=== PATIENT | male | born 1960 | race Caucasian/White ===

== ENCOUNTER 2018-01-05 15:34 | Emergency (ER) | payer OTHER, MEDICAID ==
[~2018-01-05] VITALS: Ht 172.7 cm; Wt 73.9 kg
[~2018-01-05 15:34] MED LIST: ADULT LOW DOSE81 MG PO; AMBIEN 5 MG TABL5 M1 PO; AMITRIPTYLINE H25 M2 PO; ANTIHYPERTENSIVE; ATORVASTATIN CA40 MG PO; CHANTIX1 MG PO; CLONAZEPAM; CLONAZEPAM 0.50.5 M1 PO; COLACE100 MG PO; ELIQUIS5 MG PO; FLEXERIL PO; IBUPROFEN 800800 M1 PO; INDERAL LA60 M1 PO; LEVOTHYROXIN0.025 MG PO; LISINOPRIL5 MG PO; NITROGLYCERIN0.4 MG SUBLING; OXYCODONE HCL15 MG PO; PERCOCET 10-321 EACH PO; PRINIVIL5 MG PO; PROZAC 20 MG20 M1 PO; RANITIDINE HCL75 MG PO; ROBAXIN500 MG PO; TOPROL XL50 MG PO; UNICOMPLEX M TA1 TA1 PO; XANAX 0.5 MG0.5 MG PO; XANAX1 MG
[2018-01-05 16:06] LABS: ABSOLUTE BASOPHILS 0.1 thou/uL (0.0-0.2); ABSOLUTE EOSINOPHILS 0.5 thou/uL (0.0-0.7); ABSOLUTE LYMPHOCYTES 2.8 thou/uL (0.8-5.3); ABSOLUTE MONOCYTES 1.1 thou/uL (0.0-1.2); ABSOLUTE NEUTROPHILS 5.9 thou/uL (1.6-8.1); BASOPHILS 1.3 %; EOSINOPHILS 4.4 %; HEMATOCRIT 39.8 % (42.0-52.0); HEMOGLOBIN 13.6 gm/dL (14.0-18.0); LYMPHOCYTES 27.4 %; MCH 31.9 pg (26.0-34.0); MCHC 34.2 g/dL (28.0-37.0); MCV 93.4 fL (80.0-100.0); MONOCYTES 10.4 %; MPV 7.9 fl. (7.2-11.1); NUCLEATED RBCS 0 /100WBC; PLATELET COUNT* 275 thou/uL (150-400); POLYS 56.5 %; RBC 4.26 mil/uL (4.50-6.00); RDW-CV 14.3 % (10.5-14.5); WBC 10.4 thou/uL (4.0-11.0)
[2018-01-05 16:15] LABS: CALCIUM 8.5 mg/dL (8.5-10.1); CREATININE 1.1 mg/dL (0.6-1.3); POTASSIUM 4.2 mmol/L (3.5-5.1)
[2018-01-05 17:00] VITALS: BP 112/71
== END 2018-01-05 17:00 | disposition home or self-care (01) ==
LOC: M.ERS 15:34
PROVIDERS: Nurse Practitioner Family
DX: S09.8XXA Other specified injuries of head, initial encounter (principal); E03.9 Hypothyroidism, unspecified; F17.210 Nicotine dependence, cigarettes, uncomplicated; W18.39XA Other fall on same level, initial encounter; Y93.89 Activity, other specified; Y92.89 Other specified places as the place of occurrence of the external cause; Y99.8 Other external cause status

== ENCOUNTER 2018-02-06 19:52 | Emergency (ER) | payer OTHER, MEDICAID ==
[~2018-02-06] VITALS: Ht 172.7 cm; Wt 74.8 kg
[2018-02-06 20:25] LABS: ABSOLUTE BASOPHILS 0.1 thou/uL (0.0-0.2); ABSOLUTE EOSINOPHILS 0.3 thou/uL (0.0-0.7); ABSOLUTE LYMPHOCYTES 2.7 thou/uL (0.8-5.3); ABSOLUTE MONOCYTES 1.4 thou/uL (0.0-1.2); ABSOLUTE NEUTROPHILS 8.2 thou/uL (1.6-8.1); BASOPHILS 0.9 %; EOSINOPHILS 2.2 %; HEMATOCRIT 39.3 % (42.0-52.0); HEMOGLOBIN 13.4 gm/dL (14.0-18.0); LYMPHOCYTES 21.5 %; MCV 94.2 fL (80.0-100.0); MONOCYTES 11.2 %; MPV 8.2 fl. (7.2-11.1); NUCLEATED RBCS 0 /100WBC; PLATELET COUNT* 268 thou/uL (150-400); POLYS 64.2 %; RBC 4.17 mil/uL (4.50-6.00); RDW-CV 14.4 % (10.5-14.5); WBC 12.8 thou/uL (4.0-11.0)
[2018-02-06 20:28] LABS: CALCIUM 8.6 mg/dL (8.5-10.1); POTASSIUM 3.8 mmol/L (3.5-5.1)
[2018-02-06] MEDS ORDERED: GUAIFENESIN200 MG PO (22:24)
[2018-02-06 22:35] VITALS: BP 130/60
== END 2018-02-06 22:48 | disposition home or self-care (01) ==
LOC: M.ERS 19:52
PROVIDERS: Emergency Medicine
DX: R13.10 Dysphagia, unspecified (principal); E03.9 Hypothyroidism, unspecified; F17.210 Nicotine dependence, cigarettes, uncomplicated

== ENCOUNTER → 2018-06-28 | Outpatient (CLI) | payer OTHER, MEDICAID ==
[~2018-06-28] MED LIST changes: +GUAIFENESIN200 MG PO
== END ==
LOC: M.CT 06-14 13:30 → M.ULTRA 06-14 14:00 → M.CT 12:33
DX: I65.22 Occlusion and stenosis of left carotid artery (principal); F17.200 Nicotine dependence, unspecified, uncomplicated; I50.9 Heart failure, unspecified; I42.9 Cardiomyopathy, unspecified; J90 Pleural effusion, not elsewhere classified; J98.4 Other disorders of lung; I25.5 Ischemic cardiomyopathy; I50.21 Acute systolic (congestive) heart failure; I10 Essential (primary) hypertension; I73.9 Peripheral vascular disease, unspecified; Z95.1 Presence of aortocoronary bypass graft; Z95.810 Presence of automatic (implantable) cardiac defibrillator

== ENCOUNTER → 2019-01-29 | Outpatient (CLI) | payer OTHER, MEDICAID | LOC: M.RAD 17:05 | DX: M25.751 Osteophyte, right hip (principal); I70.0 Atherosclerosis of aorta; G89.29 Other chronic pain; M25.561 Pain in right knee; M54.41 Lumbago with sciatica, right side ==

== ENCOUNTER 2019-08-29 02:45 | Emergency (ER) | payer OTHER, MEDICAID ==
[~2019-08-29] VITALS: Ht 177.8 cm; Wt 83.0 kg
[2019-08-29 03:20] LABS: ABSOLUTE BASOPHILS 0.2 thou/uL (0.0-0.2); ABSOLUTE EOSINOPHILS 0.4 thou/uL (0.0-0.7); ABSOLUTE LYMPHOCYTES 5.3 thou/uL (0.8-5.3); ABSOLUTE MONOCYTES 1.3 thou/uL (0.0-1.2); ABSOLUTE NEUTROPHILS 9.2 thou/uL (1.6-8.1); EOSINOPHILS 2.2 %; HEMATOCRIT 41.9 % (42.0-52.0); LYMPHOCYTES 32.3 %; MCH 31.4 pg (26.0-34.0); MCHC 33.4 g/dL (28.0-37.0); MONOCYTES 8.2 %; MPV 8.7 fl. (7.2-11.1); NUCLEATED RBCS 0 /100WBC; PLATELET COUNT* 342 thou/uL (150-400); POLYS 56.3 %; RBC 4.46 mil/uL (4.50-6.00); RDW-CV 14.8 % (10.5-14.5); WBC 16.3 thou/uL (4.0-11.0)
[2019-08-29 03:27] LABS: CALCIUM 9.3 mg/dL (8.5-10.1); CREATININE 1.9 mg/dL (0.6-1.3); POTASSIUM 5.4 mmol/L (3.5-5.1)
[2019-08-29 03:38] LABS: ALBUMIN 3.7 g/dL (3.4-5.0); TOTAL BILIRUBIN 0.4 mg/dL (<0.1-1.0); TOTAL PROTEIN 7.7 g/dL (6.4-8.2)
[2019-08-29 03:40] LABS: INR 1.1; PROTIME 10.9 Seconds (9.20-11.50)
[2019-08-29 03:44] LABS: ALCOHOL < 10 mg/dL (<10); SALICYLATE 4.4 mg/dL (2.8-20.0)
[2019-08-29 03:45] LABS: ACETAMINOPHEN < 2 ug/mL (10-30)
[2019-08-29 04:00] LABS: BE -8.3 mmol/L (-2 to +3); PCO2 VENOUS 36.6 mmHg (41.0-51.0); PO2 VENOUS 88.2 mmHg (35.0-45.0)
[2019-08-29 04:55] LABS: URINE BILIRUBIN NEGATIVE (Negative); URINE BLOOD NEGATIVE (Negative); URINE CLARITY CLEAR; URINE COLOR YELLOW; URINE GLUCOSE-RANDOM NEGATIVE (Negative); URINE KETONES TRACE (Negative); URINE LEUKOCYTES-REFLEX NEGATIVE (Negative); URINE NITRITE-REFLEX NEGATIVE (Negative); URINE PROTEIN NEGATIVE (Negative); URINE SPECIFIC GRAVITY >= 1.030 (1.005-1.030); URINE UROBILINOGEN 0.2 E.U./dl (0.2-1.0)
[2019-08-29 05:02] LABS: AMP/METHAMP POSITIVE (Negative); BARBITURATES Negative (Negative); BENZODIAZEPINES POSITIVE (Negative); COCAINE Negative (Negative); METHADONE Negative (Negative); OPIATES Negative (Negative); PCP Negative (Negative); THC POSITIVE (Negative)
[2019-08-29 05:50] VITALS: BP 77/41
--- NOTE | 2019-08-29 12:56 | EKG ---
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: : 1960 Requested By: Sherman Benites Order Number: [id number] MD: Mckay Enriquez Measurements Intervals [place] Rate: 91 P: 92 AR: 122 QRS: -30 QRSD: 139 T: 96 QT: 428 QTc: 527 Interpretive Statements Atrial-sensed ventricular-paced rhythm No further analysis attempted due to paced rhythm Baseline wander in lead(s) V6 Compared to ECG 12/19/2016 12:32:41 No significant changes Electronically Signed On 08-29-2019 12:55:52 SATURATOR OPERATOR by Mckay Enriquez [email or web address] <ELECTRONICALLY SIGNED> By: Mckay Enriquez MD, [facility] 08/29/19 1255 0315 0315 Mckay Enriquez MD, [facility] /EPI
== END 2019-08-29 05:50 | disposition short-term general hospital (02) ==
LOC: M.ERS 02:45
PROVIDERS: Emergency Medicine
DX: I61.9 Nontraumatic intracerebral hemorrhage, unspecified (principal); E03.9 Hypothyroidism, unspecified; F17.210 Nicotine dependence, cigarettes, uncomplicated; Z95.0 Presence of cardiac pacemaker

== ENCOUNTER → 2019-10-25 | Outpatient (CLI) | payer OTHER, MEDICAID | LOC: M.CT 15:27 | DX: G93.89 Other specified disorders of brain (principal); I73.9 Peripheral vascular disease, unspecified; I25.5 Ischemic cardiomyopathy; I25.10 Atherosclerotic heart disease of native coronary artery without angina pectoris; E78.5 Hyperlipidemia, unspecified ==

== ENCOUNTER 2020-01-06 13:53 | Observation (INO) | payer OTHER, MEDICAID ==
[~2020-01-06] VITALS: Ht 170.2 cm; Wt 77.2 kg
[2020-01-06 13:55] VITALS: BP 127/62
[2020-01-06 14:31] LABS: ABSOLUTE BASOPHILS 0.2 thou/uL (0.0-0.2); ABSOLUTE EOSINOPHILS 0.4 thou/uL (0.0-0.7); ABSOLUTE LYMPHOCYTES 2.8 thou/uL (0.8-5.3); ABSOLUTE MONOCYTES 0.9 thou/uL (0.0-1.2); ABSOLUTE NEUTROPHILS 4.9 thou/uL (1.6-8.1); BASOPHILS 1.9 %; EOSINOPHILS 4.2 %; HEMATOCRIT 33.7 % (42.0-52.0); HEMOGLOBIN 11.5 gm/dL (14.0-18.0); LYMPHOCYTES 30.9 %; MCH 29.8 pg (26.0-34.0); MCHC 34.1 g/dL (28.0-37.0); MCV 87.4 fL (80.0-100.0); MPV 8.1 fl. (7.2-11.1); NUCLEATED RBCS 0 /100WBC; PLATELET COUNT* 310 thou/uL (150-400); RBC 3.86 mil/uL (4.50-6.00); RDW-CV 17.5 % (10.5-14.5); WBC 9.2 thou/uL (4.0-11.0)
[2020-01-06 14:40] LABS: CALCIUM 8.3 mg/dL (8.5-10.1); CREATININE 0.9 mg/dL (0.6-1.3)
[2020-01-06 14:42] LABS: PROTIME 9.9 Seconds (9.20-11.50)
[2020-01-06 14:51] LABS: TOTAL BILIRUBIN 0.2 mg/dL (<0.1-1.0); TOTAL PROTEIN 6.9 g/dL (6.4-8.2)
[2020-01-06] MEDS ORDERED: LEVO-T25 MCG PO (14:53)
[2020-01-06] MEDS ORDERED: ZOLOFT 50 MG TA50 MG PO (14:53)
--- NOTE | 2020-01-06 16:58 | EKG ---
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: [place] : 1960 Requested By: Lolita Mariano Order Number: [id number] MD: Mckay Enriquez Measurements Intervals [place] Rate: 60 P: 76 ME: 151 QRS: -38 QRSD: 119 T: 101 QT: 428 QTc: 428 Interpretive Statements Atrial-ventricular dual-paced rhythm No further analysis attempted due to paced rhythm Compared to ECG 08/29/2019 03:15:49 Atrial-sensed ventricular-paced complex(es) or rhythm no longer present Electronically Signed On 01-06-2020 16:56:26 CDT by Mckay Enriquez [email or web address] <ELECTRONICALLY SIGNED> By: Mckay Enriquez MD, FAC 01/06/20 1656 1356 1356 Mckay Enriquez MD, [facility] /EPI
[2020-01-06 18:22] VITALS: BP 141/61
[2020-01-06 20:00] VITALS: BP 147/51
[2020-01-06] MEDS ORDERED: ASPIR 8181 M1 PO (22:56)
[2020-01-06] MEDS ORDERED: COLACE 100 MG100 MG PO (22:57)
[2020-01-06] MEDS ORDERED: METOPROLOL TART25 MG PO (22:59)
[2020-01-06] MEDS ORDERED: MELATONIN3 M1 PO (22:59)
[2020-01-06] MEDS ORDERED: SEROQUEL 50 MG50 M1 PO (23:01)
[2020-01-06] MEDS ORDERED: ACCUNEB SO1.25 MG/1 INH (23:05)
[2020-01-06] MEDS ORDERED: TYLENOL325 M1 PO (23:06)
[2020-01-06] MEDS ORDERED: XANAX1 MG PO (23:07)
[2020-01-06] MEDS ORDERED: ROXICODONE15 M1 PO (23:08)
[2020-01-07 00:25] VITALS: BP 129/58
--- NOTE | 2020-01-07 03:35 | NUR ---
MED REC DONE OVER THE PHONE WITH FRIEND OF THE PT, BOTH PT AND FRIEND GAVE THE SAME NAME FOR THE PHARMACY. PHARMACY SHOULD BE CONTACTED IN AM TO VERIFY MEDICATIONS.
[2020-01-07 04:25] VITALS: BP 138/45
[2020-01-07 06:34] LABS: ANION GAP 10 mmol/L (7-16); BUN 11 mg/dL (7-18); CALCIUM 8.7 mg/dL (8.5-10.1); CHLORIDE 107 mmol/L (98-107); CHOLESTEROL 236 mg/dL (<200); CO2 26 mmol/L (21-32); CREATININE 0.9 mg/dL (0.6-1.3); GLUCOSE 85 mg/dL (70-99); HDL CHOLESTEROL 29 mg/dL (>40); LDL CHOLESTEROL 185 mg/dL (<100); POTASSIUM 3.5 mmol/L (3.5-5.1); SODIUM 143 mmol/L (136-145); TC:HDL 8.1 Ratio (Not establshd); TRIGLYCERIDE 110 mg/dL (<150); TROPONIN-I LEVEL <0.06 ng/mL (<0.06); VLDL 22 mg/dL (<40)
[2020-01-07 06:42] LABS: SERUM ASSESSMENT Clear
[2020-01-07 08:55] VITALS: BP 132/58
--- NOTE | 2020-01-07 09:00 | NUR ---
ASSUMED PT. CARE AND RECEIVED REPORT AT 0730. PT. 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 PT. DENIES CURRENT CHEST PAIN, REPORTS "STOMACH PAIN" FROM BEING NPO. FULL ASSESSMENT COMPLETED, REFER TO CHARTING. CALL LIGHT IN REACH, FALL PRECATUIONS INPLACE. WILL CONTINUE WITH PLAN OF CARE.
[2020-01-07 11:30] VITALS: BP 139/51
--- NOTE | 2020-01-07 15:28 | 2DMMODE ---
[place] [address] 2 D/M-MODE ECHOCARDIOGRAM Name: DELMIS CUETO Room: [address] [place]#: [id number] Admission: 01/06/20 Attend Phys: Bridger Nguyen Discharge: Date of : 64 Date of Service: 01/07/20 1526 Report #: [id number] THIS REPORT FOR: cc: Tab Weeks MD, David L. MD Liston, Michael J. MD [facility] ~ APPROVED REPORT Study performed: 01/07/2020 13:16:03 EXAM: Comprehensive 2D, Doppler, and color-flow Echocardiogram Patient Location: In-Patient Room #: 227 Status: routine BSA: 1.89 HR: 72 bpm BP: 139/51 mmHg Rhythm: NSR Other Information Study Quality: Good Indications CAD Chest Pain 2D Dimensions IVSd: 9.25 (7-11mm) LVOT Diam: 20.77 (18-24mm) LVDd: 46.82 mm PWd: 8.96 (7-11mm) Ascending Ao: 28.15 (22-36mm) LVDs: 29.71 (25-40mm) Aortic Root: 32.29 mm Volumes Left Atrial Volume (Systole) LA ESV Index: 25.00 mL/m2 Aortic Valve AoV Peak Sherman.: 1.36 m/s AO Peak Gr.: 7.42 mmHg LVOT Max P.56 mmHg AO Mean Gr.: 4.31 mmHg LVOT Mean P.83 mmHg LVOT Max V: 0.94 m/s AO V2 VTI: 26.98 cm LVOT Mean V: 0.63 m/s ESTRELLA (VTI): 2.31 cm2 LVOT V1 VTI: 18.36 [place] [address] 2 D/M-MODE ECHOCARDIOGRAM Name: DELMIS CUETO Room: [address] [place]#: [id number] Admission: 01/06/20 Attend Phys: Bridger Nguyen Discharge: Date of : 64 Date of Service: 01/07/20 1526 Report #: [id number] Mitral Valve E/A Ratio: 1.31 MV Decel. Time: 209.27 ms MV E Max Sherman.: 1.01 m/s MV PHT: 60.69 ms MVA (PHT): 3.63 cm2 TDI E/Lateral E': 9.18 E/Medial E': 9.18 Medial E' Sherman.: 0.11 m/s Lateral E' Sherman.: 0.11 m/s Pulmonary Valve PV Peak Sherman.: 1.11 m/s PV Peak Gr.: 4.89 mmHg Left Ventricle The left ventricle is normal size. There is focal apical akinesis There is normal left ventricular wall thickness. Left ventricular systolic function is preserved. LVEF is 55-60%. The left ventricular diastolic function is normal. Right Ventricle The right ventricle is normal size. The right ventricular systolic function is normal. Pacemaker lead is present in the right ventricle. Atria The left atrium size is normal. The right atrium size is normal. Aortic Valve Mild aortic valve sclerosis. No aortic regurgitation is present. There is no aortic valvular stenosis. Mitral Valve The mitral valve is normal in structure. There is no mitral valve regurgitation noted. No evidence of mitral valve stenosis. Tricuspid Valve The tricuspid valve is normal in structure. Unable to assess PA pressure. Trace tricuspid regurgitation. Pulmonic Valve Pulmonic valve is grossly normal in structure. There is no pulmonic [place] [address] 2 D/M-MODE ECHOCARDIOGRAM Name: DELMIS CUETO Room: [address] [place]#: [id number] Admission: 01/06/20 Attend Phys: Bridger Nguyen Discharge: Date of : 64 Date of Service: 01/07/20 1526 Report #: [id number] Great Vessels The aortic root is normal in size. IVC is normal in size and collapses >50% with inspiration. Pericardium There is no pericardial effusion. <Conclusion> The left ventricle is normal size. There is normal left ventricular wall thickness. Left ventricular systolic function is preserved. LVEF is 55-60%. There is focal apical akinesis The left ventricular diastolic function is normal. Pacemaker lead is present in the right ventricle. IVC is normal in size and collapses >50% with inspiration. <ELECTRONICALLY SIGNED> By: Diego Fontana MD, FACC 01/07/20 1526 1526 1526 Diego Fontana MD, FACC /INF
--- NOTE | 2020-01-07 16:23 | NUR ---
Cm spoke with dtr via phone. Pt resides at home with his friend, Areli. Pt is independent, friend assists with reminders for Pt. No DME. No hx of HH or SNF. Goal is home at dc, per dtr, does not anticipate any dc needs.
[2020-01-07 16:27] VITALS: BP 139/51
--- NOTE | 2020-01-07 17:21 | NUR ---
DC ORDERS RECIEVED. IV AND MONITOR REMOVED. ECHO AND ULTRASOUND RESULTS GIVEN TO FARNAZ HIDALGO WITH CV, OK WITH DC. PT. GIVEN DC INSTRUCTIONS AND VERBALIZED UNDERSTANDING. PT. LEFT WITH FRIEND IN PERSONAL VEHICLE, ALL BELONGINGS ACCOUNTED FOR.
[2020-01-08 02:07] LABS: GLYCOHEMOGLOBIN (HGB A1C) 5.7 % (4.8-5.6)
== END 2020-01-07 17:22 | disposition home or self-care (01) ==
LOC: M.ERS 13:53 → M.2W 16:45 → M.TBA-ER 16:45 → M.2W 19:05
PROVIDERS: Personal Emergency Response Attendant; ADMIT Internal Medicine
DX: R07.89 Other chest pain (principal); I25.10 Atherosclerotic heart disease of native coronary artery without angina pectoris; E03.9 Hypothyroidism, unspecified; I25.5 Ischemic cardiomyopathy; I10 Essential (primary) hypertension; E78.5 Hyperlipidemia, unspecified; F17.200 Nicotine dependence, unspecified, uncomplicated; R42 Dizziness and giddiness; Z95.1 Presence of aortocoronary bypass graft; W17.89XA Other fall from one level to another, initial encounter; Y93.89 Activity, other specified; Y92.89 Other specified places as the place of occurrence of the external cause; Y99.8 Other external cause status

== ENCOUNTER → 2020-02-19 | Outpatient (CLI) | payer OTHER, MEDICAID ==
[~2020-02-19] MED LIST changes: +ACCUNEB SO1.25 MG/1 INH; +ASPIR 8181 M1 PO; +COLACE 100 MG100 MG PO; +LEVO-T25 MCG PO; +MELATONIN3 M1 PO; +METOPROLOL TART25 MG PO; +ROXICODONE15 M1 PO; +SEROQUEL 50 MG50 M1 PO; +TYLENOL325 M1 PO; +XANAX1 MG PO; +ZOLOFT 50 MG TA50 MG PO
--- NOTE | 2020-03-04 12:39 | EEG ---
[address] [address] EEG STUDY REPORT Name: DELMIS CUETO [facility] [id number] Admission: 02/19/20 Attend Phys: Tab Weeks MD Discharge: Date of : 64 Report #: [id number] THIS REPORT FOR: //name// CC: Tab Weeks This patient is being evaluated for the possibility of seizure. EEG was done by placing the electrode by standard 10-20 system of electrode placement. Both referential and sequential montages were used for recording. Background activity in this patient's EEG is about 10 Hz and 30 microvolt. Photic stimulation is unremarkable. The patient became drowsy and that was associated with bilateral slowing and vertex sharp waves. Throughout the record, no active epileptiform activity was noticed. IMPRESSION: This patient's EEG is within normal limits. No active epileptiform activity was noticed. It might be mentioned that EEG can be normal in a patient with a seizure disorder. Thank you very much for this referral. <ELECTRONICALLY SIGNED> By: Harris Del Valle MD 03/04/20 1239 1511 1549Harris Del Valle MD /nt
== END ==
LOC: M.CRD 13:00
PROVIDERS: ATTEND Internal Medicine
DX: Z13.858 Encounter for screening for other nervous system disorders (principal)

== ENCOUNTER → 2020-07-01 | Outpatient (CLI) | payer OTHER, MEDICAID | LOC: M.RAD 13:12 | PROVIDERS: ATTEND Internal Medicine | DX: R10.9 Unspecified abdominal pain (principal); R07.89 Other chest pain ==

== ENCOUNTER → 2021-04-19 | Outpatient (CLI) | payer OTHER, MEDICAID ==
[~2021-04-19] MED LIST changes: +ADVIL200 M1 PO; +CHILDREN'S ZYRT10 M1 PO; +CVS REDNESS REL OPHTHALMIC; +FLOMAX0.4 MG PO; +FUROSEMIDE 20 M20 MG PO; +Focus Factor PO; +LIPITOR40 MG PO; +NITROSTAT0.4 M1 SUBLING; +TYLENOL EXTRA500 MG PO; +VITAMIN B-121000 MC2 PO
--- NOTE | 2021-04-19 14:56 | 2DMMODE ---
[place] [address] 2 D/M-MODE ECHOCARDIOGRAM Name: DELMIS CUETO [facility] [id number] Admission: 04/19/21 Attend Phys: Diego Fontana, Discharge: Date of : 64 Date of Service: 04/19/21 1455 Report #: [id number] THIS REPORT FOR: cc: Milton Nuno MD, Meng MD Blick, David R. MD [facility] ~ APPROVED REPORT Study performed: 04/19/2021 12:07:19 EXAM: Comprehensive 2D, Doppler, and color-flow Echocardiogram Patient Location: Out-Patient BSA: 1.99 HR: 77 bpm BP: 140/58 mmHg Other Information Study Quality: Good Indications CAD Cardiomyopathy 2D Dimensions IVSd: 9.67 (7-11mm) LVOT Diam: 20.80 (18-24mm) LVDd: 43.28 mm PWd: 9.16 (7-11mm) Ascending Ao: 26.31 (22-36mm) LVDs: 29.54 (25-40mm) Aortic Root: 27.04 mm Volumes Left Atrial Volume (Systole) LA ESV Index: 13.90 mL/m2 Aortic Valve AoV Peak Sherman.: 1.03 m/s AO Peak Gr.: 4.27 mmHg LVOT Max P.92 mmHg AO Mean Gr.: 2.48 mmHg LVOT Mean P.90 mmHg LVOT Max V: 0.69 m/s AO V2 VTI: 18.66 cm LVOT Mean V: 0.43 m/s ESTRELLA (VTI): 2.64 cm2 LVOT V1 VTI: 14.49 [place] [address] 2 D/M-MODE ECHOCARDIOGRAM Name: DELMIS CUETO [facility]#: [id number] Admission: 04/19/21 Attend Phys: Diego Fontana, Discharge: Date of : 64 Date of Service: 04/19/21 1455 Report #: [id number] E/A Ratio: 0.95 MV Decel. Time: 200.98 ms MV E Max Sherman.: 0.68 m/s MV PHT: 58.28 ms MVA (PHT): 3.77 cm2 TDI E/Lateral E': 9.71 E/Medial E': 6.80 Medial E' Sherman.: 0.10 m/s Lateral E' Sherman.: 0.07 m/s Pulmonary Valve PV Peak Sherman.: 0.88 m/s PV Peak Gr.: 3.10 mmHg Left Ventricle The left ventricle is normal size. apical akinesis There is normal left ventricular wall thickness. Left ventricular systolic function is borderline. LVEF is 45-50%. Grade I - abnormal relaxation pattern. Right Ventricle The right ventricle is normal size. The right ventricular systolic function is normal. Pacemaker lead is present in the right ventricle. Atria The left atrium size is normal. Pacemaker lead is present in the right atrium. Aortic Valve The Aortic valve is sclerotic. No aortic regurgitation is present. There is no aortic valvular stenosis. Mitral Valve The mitral valve is normal in structure. There is no mitral valve regurgitation noted. No evidence of mitral valve stenosis. Tricuspid Valve The tricuspid valve is normal in structure. There is no tricuspid valve regurgitation noted. Pulmonic Valve Pulmonic valve is not well visualized. Mild pulmonic regurgitation. Great Vessels The aortic root is normal in size. IVC [place] [address] 2 D/M-MODE ECHOCARDIOGRAM Name: KINGDELMISKIMBER WATKINS Room: [facility] JACKELINE Klein[place]#: [id number] Admission: 04/19/21 Attend Phys: Diego Fontana, Discharge: Date of : 64 Date of Service: 04/19/21 1455 Report #: [id number] collapses >50% with inspiration. Pericardium There is no pericardial effusion. <Conclusion> apical akinesis LVEF is 45-50%. The Aortic valve is sclerotic. <ELECTRONICALLY SIGNED> By: Tab Millan MD, [facility] 04/19/21 1455 1455 1455 Tab Millan MD, [facility] /INF
--- NOTE | 2021-04-19 17:53 | CARDNUC ---
[place] [address] CARDIAC NUCLEAR IMAGING REPORT Name: DELMIS CUETO Room: [facility]#: [id number] Admission: 04/19/21 Attend Phys: Diego Fontana, Discharge: Date of : 64 Date of Service: 04/19/21 1753 Report #: [id number] THIS REPORT FOR: cc: Milton Nuno MD, Meng MD Liston, Michael J. MD [facility] ~ APPROVED REPORT Imaging Protocol: Stress Tc-99m/Rest Tc-99m 1 day Study performed: 04/19/2021 13:30:00 Indication: Chest pain, Dyspnea. Patient Location: Out-Patient Stress Nurse: FERNANDO Melendez Tech:LILLIAN Peck Ht: 5 ft 7 in Wt: 192 lbs BSA: 1.99 m2 BMI: 30.06 Medical History Medical History: CAD s/p CABG, Chest pain, DUFFY, ischemic cardiomyopathy, carotid stenosis, ICD, CHF, TBI with residual deficits, chronic pain, PVD, HTN, HLD, current smoker, FHX CAD, dizziness, uses cane to ambulate. Medications: ASA 81 mg, Atorvastatin, Furosemide, Metoprolol, NTG. Allergies: No known drug allergies Cardiac Risk Factors: Age, Current Smoker, FHX of CAD, HTN, Hyperlipidemia, Smoking, PVD, ICD, carotid stenosis, CHF. Previous Cardiac Procedures: CABG, ICD. Pretest Chest Pain Characteristics: No chest pain Exercise History: Sedentary Physical Disabilities: TBI/left sided weakness, uses cane, ICD paced. Meds Held (24 hrs): Metoprolol, NTG. Resting Data Rest SPECT myocardial perfusion imaging was performed in supine position 30 minutes following the intravenous injection of 10.5 mCi of Tc-99m Sestamibi. Time of rest injection: 13:55 The images were gated to evaluate regional wall motion and calculate left ventricular ejection fraction. Administration Route: [place] [address] CARDIAC NUCLEAR IMAGING REPORT Name: KINGDELMISKIMBER WATKINS Room: [facility]#: [id number] Admission: 04/19/21 Attend Phys: Diego Fontana, Discharge: Date of : 64 Date of Service: 04/19/21 1753 Report #: [id number] Administration Site: Right Arm Pharmacologic Stress Pharmacologic stress test was performed by injecting Regadenoson 0.4 mg IV push over 10-15 seconds immediately followed by the intravenous injection of 34.4 mCi of Tc-99m Sestamibi. Time of stress injection: 15:00 Administration Route: IV Administration Site: Right Arm Heart Rate at time of stress injection: 100 bpm. Gated Stress SPECT was performed 45 minutes after stress injection. The images were gated to evaluate regional wall motion and calculate left ventricular ejection fraction. Prone imaging was performed. Stress Test Details Stress Test: Pharmacologic stress testing performed using 0.4 mg of regadenoson per 5 mL given IV over 10 seconds. Reason for pharmacologic stress test: TBI/left sided weakness, uses cane, ICD paced.. HR Max Heart Rate (APMHR): 162 bpm Resting HR: 78 bpm Target HR (85% APMHR): 137 bpm Max HR Achieved: 100 bpm % of APMHR: 61 Recovery HR: 89 bpm BP Resting BP: 121/77 mmHg Max BP: 105/66 mmHg Recovery BP: 125/90 mmHg ECG Resting ECG: Sinus Rhythm, RBBB Stress ECG: Sinus Rhythm, RBBB ST Change: None Arrhythmia: None Recovery ECG: Sinus Rhythm, LBBB Recovery ST Change: None Recovery Arrhythmia: None Clinical Reason for Termination: Completed protocol Stress Symptoms: None voiced. Exercise duration: 00 min 00 sec Exercise capacity: 1.00 [place] [address] CARDIAC NUCLEAR IMAGING REPORT Name: DELMIS CUETO Room: [facility]#: [id number] Admission: 04/19/21 Attend Phys: Diego Fontana, Discharge: Date of : 64 Date of Service: 04/19/21 1753 Report #: [id number] The patient tolerated Lexiscan infusion without significant cardiac symptoms. Nurse Comments A physically impaired patient tolerated a sitting Lexiscan Nuclear Stress test. Patient was stable and stated he felt good when escorted to Nuclear Medicine for imaging. Stress ECG Conclusion The baseline twelve-lead EKG shows sinus rhythm with right bundle branch block without significant ST segment or T wave abnormality. EKGs obtained during and post Lexiscan infusion show sinus rhythm with no significant ST segment changes when compared to baseline. There were no stress-induced arrhythmias. Study Quality Study: Good Artifact: No artifact Study Data At rest, the left ventricular ejection fraction was 46%.. Post stress, the left ventricular ejection was 47%.. TID = 0.95. Perfusion There is a small in size severe intensity fixed apical defect consistent with prior infarct. No other fixed or reversible defects are identified. Wall Motion Global LV systolic function is only mildly decreased. There is a septal wall motion abnormality of uncertain significance. There is slight apical hypokinesis. Nuclear Conclusion ECG Findings: negative for ischemia Clinical Findings: negative for ischemia Nuclear Findings: negative for ischemia Exercise Capacity: not assessed Left Ventricular Function: Mildly reduced Perfusion images suggest prior apical infarct. There were no reversible defects to suggest ischemia. Global LV systolic function was mildly diminished. This is not a high risk study. <Conclusion> The baseline twelve-lead EKG shows sinus [place] [address] CARDIAC NUCLEAR IMAGING REPORT Name: NORYDELMIS JUNE [id number] Admission: 04/19/21 Attend Phys: Diego Fontana, Discharge: Date of : 64 Date of Service: 04/19/21 1753 Report #: [id number] branch block without significant ST segment or T wave abnormality. EKGs obtained during and post Lexiscan infusion show sinus rhythm with no significant ST segment changes when compared to baseline. There were no stress-induced arrhythmias. <ELECTRONICALLY SIGNED> By: Diego Fontana MD, [facility] 04/19/211752 52 52 Diego Fontana MD, FAC /INF
== END ==
LOC: M.ULTRA 04-01 10:21 → M.NUC 04-12 08:00 → M.ULTRA 04-12 08:00 → M.CRD 04-12 08:00 → M.NUC 14:00
PROVIDERS: ATTEND Internal Medicine Cardiovascular Disease
DX: I37.1 Nonrheumatic pulmonary valve insufficiency (principal); I65.23 Occlusion and stenosis of bilateral carotid arteries; I25.10 Atherosclerotic heart disease of native coronary artery without angina pectoris; I42.9 Cardiomyopathy, unspecified; R07.9 Chest pain, unspecified; R06.00 Dyspnea, unspecified